=== PATIENT | female | born 1960 | race Caucasian/White ===

== ENCOUNTER → 2021-06-25 | Outpatient (CLI) | payer BC, OTHER ==
--- NOTE | 2021-06-25 14:26 | KCIC ---
EXAM: Lumbar spine MRI without contrast. HISTORY: Radiculopathy. TECHNIQUE: Multiplanar, multisequence magnetic resonance imaging of the lumbar spine was performed wi thout contrast. COMPARISON: None. FINDINGS: There is mild lumbar scoliosis. There is minimal anterolisthesis of T12 on L1 and mild retr olisthesis of L2 on L3, L3 on L4 and L4 and L5. There is multilevel endplate remodeling with disc spa ce narrowing and osteophytosis. There are multiple endplate Schmorl's nodes. There is disc space narr owing predominantly at L2-L3 and L4-L5. There are multiple benign osseous hemangiomas. There is no ac chilkat or subacute fracture. The conus terminates at L1. There are left retroperitoneal masses at the level of the left renal vein measuring up to 4.6 cm, pos sibly due to pathologically enlarged lymph nodes. There is a mass within the adjacent medial left kid jeffrey measuring 3.3 cm. There are additional ill-defined hypointense lesions within both kidneys. There is an enlarged aortocaval lymph node measuring 1.5 cm. There is a destructive mass with surrounding soft tissue involving the right iliac bone, partially included on the [id number]. At L1-L2, there is no stenosis. At L2-L3, there is a disc bulge and endplate osteophytosis. There is minimal retrolisthesis. There is mild bilateral facet arthropathy. There is mild bilateral foraminal stenosis. There is moderate cent ral canal stenosis. At L3-L4, there is a left foraminal disc protrusion and superior extrusion superimposed on a disc bul ge and endplate osteophytosis. There is mild bilateral facet arthropathy. There is mild right and mod erate left foraminal stenosis with effacement of the exiting left L3 nerve root. There is mild centra l canal stenosis. At L4-L5, there is a right foraminal to extra foraminal disc protrusion superimposed on a disc bulge and endplate osteophytosis. There is moderate bilateral facet arthropathy. There is severe right and mild left foraminal stenosis with effacement of the exiting right L4 nerve root. There is mild centra l canal stenosis. At L5-S1, there is moderate left facet arthropathy. There is mild left foraminal stenosis. IMPRESSION: 1. Left retroperitoneal masses at the level of the left renal vein likely due to pathologically enlar ged lymph nodes. Given the presence of a left renal mass, these are likely metastatic in etiology. Th ere are additional ill-defined lesions within both kidneys which can be better assessed with a renal protocol CT or MRI. There is also a nonspecific enlarged right aortocaval lymph node. 2. Destructive mass with surrounding soft tissue involving the right iliac bone, partially included o n the [id number] and likely metastatic the aforementioned findings. 3. Multilevel degenerative change involving the lumbar spine, described in detail above. This results in significant stenosis at the aforementioned levels. Electronically signed by: Sonja Ortiz MD (06/25/2021 2:24 PM) [facility]
== END ==
LOC: KCIC MRI 12:19
PROVIDERS: ATTEND Physician Assistant
DX: M47.816 Spondylosis without myelopathy or radiculopathy, lumbar region (principal); M48.8X7 Other specified spondylopathies, lumbosacral region; M48.07 Spinal stenosis, lumbosacral region; M51.26 Other intervertebral disc displacement, lumbar region; M25.78 Osteophyte, vertebrae; N28.89 Other specified disorders of kidney and ureter; K68.9 Other disorders of retroperitoneum; D18.09 Hemangioma of other sites; M43.16 Spondylolisthesis, lumbar region; M41.86 Other forms of scoliosis, lumbar region; M51.46 Schmorl's nodes, lumbar region; M99.85 Other biomechanical lesions of pelvic region
CPT/HCPCS: 72148